=== PATIENT | male | born 1970 | race Caucasian/White ===

== ENCOUNTER 2024-07-21 18:07 | Emergency (ER) | payer BC ==
[~2024-07-21] VITALS: Ht 188 cm; Wt 100.0 kg
[2024-07-21 18:09] VITALS: O2SAT 97
[2024-07-21 18:26] VITALS: TEMP 36.6
[2024-07-21] MEDS: SODIUM CHLORIDE 0.9% 1,000 ML IV ONE (18:38)
[2024-07-21 19:01] LABS: HEMATOCRIT. 41.5 % (42.0-52.0); HEMOGLOBIN. 13.8 g/dL (14.0-18.0); MEAN CORPUSCULAR HEMOGLOBIN 31.7 pg (28.0-32.0); MEAN CORPUSCULAR HGB CONC 33.2 g/dL (31.0-37.0); MEAN CORPUSCULAR VOLUME 95.6 fL (80.0-94.0); MEAN PLATELET VOLUME 7.7 fl (7.4-10.4); PLATELET 261 x1000/uL (130-400); RED BLOOD CELL COUNT 4.34 mill/uL (4.7-6.1); RED CELL DISTRIBUTION WIDTH 13.6 % (11.6-14.6); WHITE BLOOD COUNT 10.6 x1000/uL (4.5-11.0)
[2024-07-21 19:03] LABS: DIFFERENTIAL COMMENT 1
[2024-07-21 19:10] LABS: CHLORIDE 108 mEq/L (98-107); POTASSIUM 3.4 mEq/L (3.5-5.1); SODIUM 141 mEq/L (136-145)
[2024-07-21 19:11] LABS: CALCIUM 7.7 mg/dL (8.7-10.4); CARBON DIOXIDE 26 mEq/L (21-32)
[2024-07-21 19:16] LABS: CREATININE 0.7 mg/dL (0.6-1.3); GLUCOSE 104 mg/dL (70-105); UREA NITROGEN BLOOD 12 mg/dL (9-23)
[2024-07-21 19:19] LABS: PLATELET ESTIMATE NORMAL
[2024-07-21 19:23] LABS: TROPONIN I HIGH SENSITIVITY < 4 ng/L (3.0-53)
[2024-07-21 20:07] VITALS: BP 123/74; PULSE 81; RESP 18; O2SAT 98
== END 2024-07-21 20:18 | disposition home or self-care (01) ==
LOC: ER 18:07
DX: R55 Syncope and collapse (principal); I95.9 Hypotension, unspecified
CPT/HCPCS: 99284; 96360; 80048; 83880; 85025; 84484; 36415; 93005; J7030